=== PATIENT | female | born 1980 | race Caucasian/White ===

== ENCOUNTER 2020-07-05 08:18 | Emergency (ER) | payer BC ==
[2020-07-05] MEDS ORDERED: MORPHINE 4 MG/ML SYR ONE (09:52)
[2020-07-05] MEDS ORDERED: ONDANSETRON 4 MG/2 ML VIAL ONE (09:52)
--- NOTE | 2020-07-05 11:05 | EDPHYS ---
Physician Documentation [facility] Name: Fabiana Shah Age: 39 yrs Sex: Female : 1980 Arrival Date: 07/05/2020 Time: 08:19 Bed 5 Private MD: ED Physician Minor Lai HPI: 07/05 09:45 This 39 yrs old Female presents to ER via Ambulatory with complaints of Arm rn Injury. 09:45 The patient or guardian complains of decreased range of motion, deformity, injury. The rn complaints affect the left bicep. Onset: The symptoms/episode began/occurred last night. Modifying factors: The symptoms are alleviated by nothing. the symptoms are aggravated by movement, bending arm. Severity of symptoms: At their worst the symptoms were moderate, in the emergency department the symptoms are unchanged. The patient has not experienced similar symptoms in the past. The patient has not recently seen a physician. family reports fall last night after slipping on ice, + left humerus swelling and pain. No head injury or pain elsewhere. Family reports told in past that has ALS, other doctor has told her she does not. Family reports decreased movement and function of left arm for "sometime". Has not elevated affected extremity. . 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 - Family history:: not pertinent. - Social history:: Smoking status: Patient denies any tobacco usage or history of. - Hospitalizations: : No recent hospitalization is reported. ROS: 09:45 Constitutional: Negative for fever, chills, and weight loss, Eyes: Negative for injury, rn pain, redness, and discharge, ENT: Negative for injury, pain, and discharge, Neck: Negative for injury, pain, and swelling, Cardiovascular: Negative for chest pain, palpitations, and edema, Respiratory: Negative for shortness of breath, cough, wheezing, and pleuritic chest pain, Abdomen/GI: Negative for abdominal pain, nausea, vomiting, diarrhea, and constipation, Back: Negative for injury and pain, MS/Extremity: + left arm injury and pain with swelling Skin: Negative for injury, rash Neuro: Negative for headache, and seizure. Exam: 09:45 Constitutional: Thin female, disheveled ENT: Dry MM, no oral injury. Neck: No rn midline tenderness. Cardiovascular: Tachycardic. No pulse deficits. Respiratory: No increased work of breathing, no retractions or nasal flaring. Abdomen/GI: soft, non-tender Skin: + echcymosis left distal humeral region MS/ Extremity: Pulses equal, no cyanosis. + distal humeral region with swelling and ecchymosis, no focal tenderness of wrist or forearm. Compartments soft, cap refill 2 sec Neuro: Awake, disheveled, slow to respond, + contractures left hand and wrist. Vital Signs: 09:33 BP 112 / 87; Pulse 104; Resp 19; Temp 97.3(TE); Pulse Ox 96% on R/A; ae4 10:03 BP 115 / 84; Pulse 80; Resp 19; Pulse Ox 95% on R/A; ae4 10:23 BP 125 / 86; Pulse 85; Resp 18; Pulse Ox 96% on R/A; ae4 MDM: 09:28 Patient medically screened. rn 10:00 ED course: Pt with oblique and displaced mid-distal humeral shaft fracture, placed in rn traction after morphine given, tolerating ok, will reeval. . 11:01 Differential diagnosis: closed fracture, contusion. Data reviewed: vital signs, nurses rn notes, radiologic studies, plain films, and as a result, I will discharge patient. Counseling: I had a detailed discussion with the patient and/or guardian regarding: the historical points, exam findings, and any diagnostic results supporting the discharge/admit diagnosis, radiology results, the need for outpatient follow up, to return to the emergency department if symptoms worsen or persist or if there are any questions or concerns that arise at home. Response to treatment: the patient's symptoms have mildly improved after treatment, and as a result, I will discharge patient. Special discussion: I discussed with the patient/guardian in detail that at this point there is no indication for admission to the hospital. It is understood, however, that if the symptoms persist or worsen the patient needs to return immediately for re-evaluation. Based on the history and exam findings, there is no indication for further emergent testing or inpatient evaluation. I discussed with the patient/guardian the need to see the orthopedic surgeon for further evaluation of the symptoms. ED course: Pt with increased length after finger traps and traction weight, placed in posterior splint, much more comfortable, good pulses, will dc home with sling/splint, and ortho f/u. Return precautions given. Instructed to elevate arm to minimize swelling. And explained signs and symptoms of compartment syndrome to family and patient. . 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 07/05 08:29 Order name: Humerus Left XRAY; Complete Time: 11:44 dm5 07/05 08:29 Order name: Forearm Left XRAY; Complete Time: 11:44 dm5 07/05 09:35 Order name: IV Start; Complete Time: 09:58 rn 07/05 09:35 Order name: Splint - Elbow - Posterior; Complete Time: 11:44 rn 07/05 09:35 Order name: Traction Splint-Apply; Complete Time: 09:57 rn Administered Medications: 09:43 Drug: Zofran (Ondansetron) 4 mg Route: IVP; Site: right forearm; ae4 19:13 Follow up: Response: No adverse reaction; No nausea reported with pain medication ae4 administration. 09:45 Drug: morphine 4 mg Route: IVP; Site: right forearm; ae4 11:00 Follow up: Response: No adverse reaction; Pain is decreased; RASS: Alert and Calm (0) ae4 Disposition: 07/05/20 11:05 Discharged to Home. Impression: Displaced oblique fracture of shaft of humerus, left arm. - Condition is Stable. - Discharge Instructions: Cast or Splint Care, Adult, Humerus Fracture Treated With Immobilization. - Prescriptions for Tylenol- Codeine #3 300-30 mg Oral Tablet - take 1 tablet by ORAL route every 6 hours As needed; 20 tablet. - Medication Reconciliation Form, Thank You Letter, Antibiotic Education, Prescription Opioid Use form. - Follow up: Jac Mann MD; When: 5 - 6 days; Reason: Recheck today's complaints, Re-evaluation by your physician. - Problem is new. - Symptoms have improved. Signatures: Dispatcher [employer] Pineda Hinson RN Minor Mcrae MD MD rn Elliott, Andrea, RN RN ae4 Corrections: (The following items were deleted from the chart) 12:18 11:05 07/05/2020 11:05 Discharged to Home. Impression: Displaced oblique fracture of em shaft of humerus, left arm. Condition is Stable. Forms are Medication Reconciliation Form, Thank You Letter, Antibiotic Education, Prescription Opioid Use. Follow up: Jac Mann; When: 5 - 6 days; Reason: Recheck today's complaints, Re-evaluation by your physician. Problem is new. Symptoms have improved. rn
--- NOTE | 2020-07-05 11:05 | ER ---
Nurse's Notes [facility] Name: Fabiana Shah Age: 39 yrs Sex: Female : 1980 Arrival Date: 07/05/2020 Time: 08:19 Bed 5 Private MD: Diagnosis: Displaced oblique fracture of shaft of humerus, left arm Presentation: 07/05 08:30 Chief complaint: Spouse and/or significant other states: slipped on a piece of ice in [facility] kitchen some time last night. Spouse states that he gave her 3 pain relief pills at home but is unsure if it is acetaminophen or ibuprofen. Dark purple bruising noted to left arm from mid-bicep to elbow, swelling noted from elbow to wrist. Onset of symptoms was July 04, 2020. 08:30 Method Of Arrival: Ambulatory [facility] 08:30 Acuity: ABBIE 3 [facility] 10:23 Coronavirus screen: Client denies travel out of the [place] in the last 14 days. At this ae4 time, the client does not indicate any symptoms associated with coronavirus-19. Ebola Screen: Patient negative for fever greater than or equal to 101.5 degrees Fahrenheit, and additional compatible Ebola Virus Disease symptoms Patient denies exposure to infectious person. Patient denies travel to an Ebola-affected area in the 21 days before illness onset. No symptoms or risks identified at this time. Initial Sepsis Screen: Does the patient meet any 2 criteria? No. Patient's initial sepsis screen is negative. Risk Assessment: Do you want to hurt yourself or someone else? Patient reports no desire to harm self or others. 11:45 Initial Sepsis Screen: Does the patient have a suspected source of infection? No. ae4 Patient's initial sepsis screen is negative. 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 - Family history:: not pertinent. - Social history:: Smoking status: Patient denies any tobacco usage or history of. - Hospitalizations: : No recent hospitalization is reported. Screenin:44 Abuse screen: Denies threats or abuse. Nutritional screening: No deficits noted. ae4 Tuberculosis screening: No symptoms or risk factors identified. Fall Risk Fall in past 12 months (25 points). Secondary diagnosis (15 points) ALS. IV access (20 points). Ambulatory Aid- None/Bed Rest/Nurse Assist (0 pts). Gait- Weak (10 pts.). Mental Status- Oriented to own ability (0 pts). Assessment: 09:59 General: Appears uncomfortable, malnourished, Pt is quiet. Behavior is cooperative, ae4 quiet. General: Appears unkempt. Pain: Complains of pain in left bicep and left tricep Pain currently is 10 out of 10 on a pain scale. Neuro: Level of Consciousness is awake, alert, Oriented to person, place, situation. Cardiovascular: Patient's skin is warm and dry. Respiratory: Airway is patent Respiratory effort is even, unlabored, Respiratory pattern is regular. GI: No signs and/or symptoms were reported involving the gastrointestinal system. : No signs and/or symptoms were reported regarding the genitourinary system. EENT: No signs and/or symptoms were reported regarding the EENT system. Derm: Bruising that is dark purple, on left bicep Healing abrasion to right elbow.. Musculoskeletal: Swelling present in left bicep and left tricep. Injury Description: Fall. Pt' significant other states she slipped on some ice the previous day. 10:22 Reassessment: No changes from previously documented assessment. Patient and/or family ae4 updated on plan of care and expected duration. Pain level reassessed. Patient is alert, oriented x 3, equal unlabored respirations, skin warm/dry/pink. Traction still applied to left arm. Pt family at bedside. 11:44 Reassessment: Patient appears in no apparent distress at this time. Patient and/or ae4 family updated on plan of care and expected duration. Pain level reassessed. Vital Signs: 09:33 BP 112 / 87; Pulse 104; Resp 19; Temp 97.3(TE); Pulse Ox 96% on R/A; ae4 10:03 BP 115 / 84; Pulse 80; Resp 19; Pulse Ox 95% on R/A; ae4 10:23 BP 125 / 86; Pulse 85; Resp 18; Pulse Ox 96% on R/A; ae4 ED Course: 08:19 Patient arrived in ED. as 08:37 Triage completed. dm5 09:28 Minor Lai MD is Attending Physician. rn 09:33 Marshall, Jaden, RN is Primary Nurse. ae4 09:34 Arm band placed on right wrist. ae4 10:03 Humerus Left XRAY In Process Unspecified. EDMS 10:03 Forearm Left XRAY In Process Unspecified. EDMS 10:24 Patient has correct armband on for positive identification. Pulse ox on. NIBP on. Warm ae4 blanket given. 11:05 Jac Mann MD is Referral Physician. rn 11:45 No provider procedures requiring assistance completed. ae4 12:17 IV discontinued, intact, bleeding controlled, No redness/swelling at site. Pressure em dressing applied. Administered Medications: 09:43 Drug: Zofran (Ondansetron) 4 mg Route: IVP; Site: right forearm; ae4 19:13 Follow up: Response: No adverse reaction; No nausea reported with pain medication ae4 administration. 09:45 Drug: morphine 4 mg Route: IVP; Site: right forearm; ae4 11:00 Follow up: Response: No adverse reaction; Pain is decreased; RASS: Alert and Calm (0) ae4 Intake: Outcome: 11:05 Discharge ordered by MD. rn 12:16 Discharged to home via wheelchair, with family. em 12:16 Condition: stable 12:16 Discharge instructions given to family, Instructed on discharge instructions, follow up and referral plans. medication usage, Demonstrated understanding of instructions, follow-up care, medications, splint care, Prescriptions given X 1. 12:18 Patient left the ED. em Signatures: Dispatcher [employer] Audra Sprague RN RN dm5 Pineda Mireles RN RN em Martinez, Amelia as Nieto, Roman, MD MD rn Elliott, Andrea, RN RN ae4
--- NOTE | 2020-07-05 11:41 | RAD REPORT ---
EXAM DESCRIPTION: RAD - Humerus Left - 07/05/2020 10:03 am CLINICAL HISTORY: Slip and fall, left arm pain COMPARISON: None. FINDINGS: Oblique fracture is present through the distal shaft left humerus. They are 4 cm of overla p of the fracture fragments along with 40 degree angulation deformity of the distal fracture fragment . No pathologic component. Elbow and shoulder joints are unremarkable. No foreign body or other soft tissue abnormality. IMPRESSION: Distal left humerus shaft fracture with overlap and angulation deformities as detailed.
--- NOTE | 2020-07-05 11:43 | RAD REPORT ---
EXAM DESCRIPTION: RAD - Forearm Left - 07/05/2020 10:03 am CLINICAL HISTORY: PAIN, fall, arm pain COMPARISON: None. FINDINGS: No fracture is identified. There is no dislocation or periosteal reaction noted. Elbow and wrist joints show no suspicious findings. No foreign body. Soft tissue edema is seen in the proximal and mid forearm soft tissues. Distal humerus fracture is separately detailed. IMPRESSION: Negative left forearm examination. Distal humerus fracture is separately detailed.
[2020-07-05 12:35] VITALS: TEMP 97.3
[2020-07-05 12:37] VITALS: BP 125/86; O2SAT 96
== END 2020-07-05 12:18 | disposition home or self-care (01) ==
LOC: ER 08:18
PROC: 2W3DX1Z Immobilization of Left Lower Arm using Splint (ICD-10-PCS; principal; 2020-07-05)
DX: S42.332A Displaced oblique fracture of shaft of humerus, left arm, initial encounter for closed fracture (principal); W01.0XXA Fall on same level from slipping, tripping and stumbling without subsequent striking against object, initial encounter; Y93.9 Activity, unspecified; Y92.000 Kitchen of unspecified non-institutional (private) residence as the place of occurrence of the external cause
CPT/HCPCS: 73090; 73060; 96375; 96374; 99284; 29125; J2405